=== PATIENT | female | born 1940 | race Caucasian/White ===

== ENCOUNTER 2016-12-27 07:17 | Day surgery (SDC) | payer MEDICARE, BC ==
[~2016-12-27] VITALS: Ht 157.6 cm; Wt 81.0 kg
[2016-12-27] VITALS (14 sets, daily range): BP systolic 119–159; BP diastolic 50–106; PULSE 52–65; TEMP 98.2
[2016-12-27] MEDS ORDERED: FLONASE NASAL S16 GM NS (08:04)
[2016-12-27] MEDS ORDERED: REQUIP XL2 MG PO (08:05)
[2016-12-27] MEDS ORDERED: LEXAPRO20 MG PO (08:06)
[2016-12-27] MEDS ORDERED: PRINZIDE 12.5 M1 TA1 PO (08:07)
[2016-12-27] MEDS ORDERED: MYSOLINE 5050 MG/TAB PO (08:08)
[2016-12-27 08:09] LABS: INR 0.9 (0.8-3.0); PROTHROMBIN TIME 10.4 SECONDS (9.7-12.8)
[2016-12-27] MEDS ORDERED: PRAVACHOL 40MG40 MG PO (08:09)
[2016-12-27] MEDS ORDERED: INDERAL 10MG10 MG PO (08:09)
[2016-12-27] MEDS ORDERED: MULTIPLE VITAMI1 CAP PO (08:10)
[2016-12-27] MEDS ORDERED: OCUVITE1 TA1 PO (08:11)
[2016-12-27] MEDS ORDERED: NATURAL POTASS595 MG PO (08:12)
[2016-12-27] MEDS ORDERED: CO Q-1010 M1 PO (08:12)
[2016-12-27] MEDS ORDERED: MAGNESIUM250 M1 PO (08:12)
[2016-12-27] MEDS ORDERED: KRILL OIL 3001 EACH PO (08:13)
[2016-12-27] MEDS ORDERED: PROBIOTIC FORMU1 CAP PO (08:13)
[2016-12-27] MEDS ORDERED: CITRACAL + D CA1 TAB PO (08:14)
[2016-12-27 08:15] LABS: ALBUMIN 4.3 gm/dL (3.5-5.0); BILIRUBIN,TOTAL 0.6 mg/dL (0.0-1.0); CALCIUM 9.2 mg/dL (8.4-10.2); CREATININE, serum 1.1 mg/dL (0.52-1.25); POTASSIUM 4.1 mmol/L (3.4-5.0); TOTAL PROTEIN 7.5 gm/dL (6.4-8.2)
[2016-12-27] MEDS ORDERED: GLUCOSAMINE SU500 M2 PO (08:16)
[2016-12-27 08:18] LABS: HEMATOCRIT 38.7 % (37.0-47.0); MEAN CELL VOLUME 95 fl (80.0-100.0); MEAN CORPUSCULAR HEMOGLOBIN 32 pg (27.0-31.0); MEAN CORPUSCULAR HGB CONC 34 g/dl (33.0-37.0); MEAN PLATELET VOLUME 9.7 fl (7.4-10.4); PLATELET COUNT 205 K/mm3 (130-400); RED BLOOD COUNT 4.06 M/mm3 (4.10-5.30); REDCELL DISTRIBUTION WIDTH-CV 13.2 % (11.5-14.5); WHITE BLOOD COUNT 3.4 K/mm3 (4.8-10.8)
[2016-12-27] MEDS ORDERED: SYNTHROID0.05 MG/TA PO ×2 (08:25→08:26)
[2016-12-27] MEDS ORDERED: STOOL SOFTENER100 M2 PO (08:27)
[2016-12-27] MEDS ORDERED: ASPIRIN E.C. 8181 MG PO (08:27)
[2016-12-27] MEDS ORDERED: VITAMIN C500 MG PO (08:28)
[2016-12-27] MEDS ORDERED: NITROSTAT0.4 MG/TAB SL (13:58)
[2016-12-27] MEDS ORDERED: ISORDIL 20MG20 M1 PO (13:59)
== END 2016-12-27 17:53 | disposition home or self-care (01) ==
LOC: COL.RAD 07:17
PROVIDERS: Internal Medicine Cardiovascular Disease
DX: I25.110 Atherosclerotic heart disease of native coronary artery with unstable angina pectoris (principal); R94.39 Abnormal result of other cardiovascular function study; E78.2 Mixed hyperlipidemia; I10 Essential (primary) hypertension; G20 Parkinson's disease
CPT/HCPCS: C1769; C1887; C1894; J1644; J2250; J3010; Q9967

== ENCOUNTER → 2020-12-03 | Outpatient (CLI) | payer MEDICARE, BC ==
--- NOTE | 2020-11-30 12:45 | NUR ---
called twice and no answer both times
[2020-12-03] VITALS (8 sets, daily range): BP systolic 121–183; BP diastolic 53–80; PULSE 50–58
[~2020-12-03] VITALS: Ht 157.5 cm; Wt 80.7 kg
[~2020-12-03] MED LIST: ASPIRIN E.C. 8181 MG PO; Areds; CITRACAL + D CA1 TAB PO; CO Q-1010 M1 PO; CRESTOR40 MG PO; FLONASE NASAL S16 GM NS; GLUCOSAMINE SU500 M2 PO; INDERAL 10MG10 MG PO; ISORDIL 20MG20 M1 PO; KRILL OIL 3001 EACH PO; LASIX 20MG TABL20 MG PO; LEXAPRO20 MG PO; MAGNESIUM250 M1 PO; MULTIPLE VITAMI1 CAP PO; MYSOLINE 5050 MG/TAB PO; NATURAL POTASS595 MG PO; NITROSTAT0.4 MG/TAB SL; NORVASC 10MG10 MG PO; OCUVITE1 TA1 PO; PRAVACHOL 40MG40 MG PO; PRINZIDE 12.5 M1 TA1 PO; PROBIOTIC FORMU1 CAP PO; REQUIP XL2 MG PO; SINEMET 25/101 UDTAB PO; STOOL SOFTENER100 M2 PO; SYNTHROID0.05 MG/TA PO; THE MEDICINE S200 M2 PO; VITAMIN C500 MG PO
--- NOTE | 2020-12-03 12:10 | NUR ---
PROCEDURE STARTED AFTER TIME OUT, DR DOS SANTOS IN ROOM
--- NOTE | 2020-12-03 12:33 | NUR ---
LIVER TISSUE SPECIMANS OBTAINED X2 PUT IN FORMULIN, BANDAID OVER RUQ. PT UP IN W/C
--- NOTE | 2020-12-03 14:20 | NUR ---
PT DISCHARGED VIA W/C TO CAR WITH FIELD GEOLOGIST
== END ==
LOC: COL.RAD 09:55
PROVIDERS: Internal Medicine Gastroenterology
DX: R79.89 Other specified abnormal findings of blood chemistry (principal); I73.9 Peripheral vascular disease, unspecified
CPT/HCPCS: 32109